=== PATIENT | female | born 1935 | race Caucasian/White ===

== ENCOUNTER → 2016-12-31 | Outpatient (CLI) | payer OTHER ==
--- NOTE | 2016-12-31 15:09 | MA ---
Screening Digital Mammogram With iCAD Analysis Clinical Indications: Routine screening. A sister was diagnosed with breast cancer in her 60s and her niece in her 40s. Technique: Standard cephalocaudal and mediolateral oblique projections were obtained. This examinatio n was processed by the iCAD computer aided detection system. Comparison: December 2015, October 2014, May 2013, March 2012, January 2011, January 2010, January 02. Breast density: Type B; Scattered fibroglandular densities. Findings: CAD was reviewed. No masses, suspicious calcifications or other signs of malignancy are id entified. There has been no significant change in the appearance of either breast. Impression: Negative mammogram. BI-RADS 1. Recommendation: Routine mammographic screening in one year. [facility] will send a result letter to the patient. Negative mammography should not preclude additional workup of a clinically suspicious finding. The patient's information is entered into a reminder system with a target due date for her next mammo gram.
== END ==
LOC: CIMAGING 13:35
DX: Z12.31 Encounter for screening mammogram for malignant neoplasm of breast (principal); Z80.3 Family history of malignant neoplasm of breast
CPT/HCPCS: G0202

== ENCOUNTER → 2017-04-16 | Outpatient (CLI) | payer OTHER | LOC: FIMAGING 13:42 | PROVIDERS: ATTEND Internal Medicine | DX: R05 Cough (principal); K44.9 Diaphragmatic hernia without obstruction or gangrene ==

== ENCOUNTER → 2017-06-17 | Outpatient (CLI) | payer OTHER | LOC: FIMAGING 07:06 | PROVIDERS: ATTEND Surgery | PROC: CW5B1ZZ Nonimaging Nuclear Medicine Probe of Head and Neck using Technetium 99m (Tc-99m) (ICD-10-PCS; principal; 2017-06-17) | DX: E21.3 Hyperparathyroidism, unspecified (principal) | CPT/HCPCS: 78808; A9500 ==

== ENCOUNTER → 2018-03-30 | Outpatient (CLI) | payer OTHER | LOC: CIMAGING 12:32 | PROVIDERS: ATTEND Internal Medicine | DX: Z12.31 Encounter for screening mammogram for malignant neoplasm of breast (principal) ==

== ENCOUNTER 2019-02-12 15:06 | Observation (INO) | payer OTHER ==
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
[2019-02-12 15:39] LABS: PLATELET COUNT 262 10^3/uL (150-400)
--- NOTE | 2019-02-12 15:44 | CPEKG ---
Test Reason : OPEN Blood Pressure : / mmHG Vent. Rate : 076 BPM Atrial Rate : 076 BPM P-R Int : 177 ms QRS Dur : 104 ms QT Int : 393 ms P-R-T Axes : 044 -39 017 degrees QTc Int : 442 ms Sinus rhythm Probable left atrial enlargement Left axis deviation Low voltage, precordial leads Confirmed by Leodan Hernandez ([id number]) on 02/12/2019 3:43:23 PM Referred By: LEODAN HERNANDEZ Confirmed By:Leodan Hernandez
[2019-02-12] MEDS ORDERED: IOPAMIDOL (ISOVUE-300) 100 ML BTL ONE (16:35)
[2019-02-12] MEDS ORDERED: HYDROmorphONE/DILAUDID 2 MG/ML INJ IVP ONE (17:35)
[2019-02-12] MEDS ORDERED: ACETAMINOPHEN 325 MG TAB PO PRN (17:59)
[2019-02-12] MEDS ORDERED: ONDANSETRON 4 MG/2 ML VIAL IVP PRN (17:59)
[2019-02-12] MEDS ORDERED: oxyCODONE IR 5 MG TAB PO PRN (17:59)
[2019-02-12] MEDS ORDERED: D5W 1/2 NS W/ 20 KCl/L 1,000 ML IV SCH (18:00)
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
[2019-02-12] MEDS ORDERED: hydrALAZINE 20 MG/ML VIAL IVP PRN (19:06)
[2019-02-12] MEDS ORDERED: D50W 25 GM/50 ML SYR IVP PRN (19:09)
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
[2019-02-12] MEDS: IBUPROFEN 600 MG TAB PO SCH (23:09)
[2019-02-12] MEDS: LOSARTAN POTASSIUM 50 MG TAB PO SCH (23:10)
[2019-02-12] MEDS: VANCOMYCIN 125 MG/2.5 ML UDL PO SCH (23:19)
[2019-02-13] MEDS: amLODIPine BESYLATE 5 MG TAB PO SCH ×2 (01:08→09:25)
[2019-02-13] MEDS: IBUPROFEN 600 MG TAB PO SCH ×2 (05:47→14:18)
[2019-02-13] MEDS: VANCOMYCIN 125 MG/2.5 ML UDL PO SCH ×3 (05:49→16:07)
[2019-02-13] MEDS ORDERED: THYROID 60 MG TAB PO SCH (06:00)
[2019-02-13] MEDS ORDERED: glipiZIDE 5 MG TAB PO SCH (07:30)
[2019-02-13] MEDS ORDERED: PIOGLITAZONE HCL 15 MG TAB PO SCH (09:00)
[2019-02-13] MEDS ORDERED: Herbals/Supplements -Info Only PO SCH (09:00)
[2019-02-13] MEDS ORDERED: HYDROCHLOROTHIAZIDE 12.5 MG CAP PO SCH (09:00)
[2019-02-13] MEDS: COLESEVELAM HCL 625 MG TAB PO SCH ×2 (09:26→12:22)
[2019-02-13] MEDS: LOSARTAN POTASSIUM 50 MG TAB PO SCH (09:27)
[2019-02-13] MEDS: INSULIN LISPRO 100 UNIT/ML SC SCH ×2 (09:33→12:19)
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
[2019-02-13] MEDS ORDERED: HYDROmorphONE/DILAUDID 2 MG TAB PO PRN (12:38)
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
--- NOTE | 2019-02-13 14:09 | ECHO ---
[email or web address] [address] [address] Main: [phone] Echocardiography Examination Transthoracic Name: SYLVESTER HUYNH MR#: [id number] Study Date: 02/13/2019 Study Time: 12:57 PM Date of : 1935 Age: 83 year(s) Height: 154.9 cm (61 in.) Weight: 87.09 kg (192 lb.) BSA: 1.86 m2 Gender: Female Examination: Echo Contrast: Image Quality: Good Rhythm: Normal sinus rhythm Heart Rate: 63 bpm BP: 137 mmHg/58 mmHg Indication: Cardiac: syncope Procedure Staff Referring Physician: [place] Machine Operator: Barrie Quintana RDCS Reading Physician: Reinaldo Mathews MD Requesting Provider: Indication: Cardiac: syncope Measurements Chambers AV/MV Label Value Normal Value Label Value Normal Value EF lower range (%) 75 % AV PGmax 18 mmHg EF upper range (%) 80 % AV PGmean 8 mmHg IVSd, 2D 0.9 cm (0.6cm - 1.1cm) AV Vmax 2.13 m/s LVDd, 2D 4.3 cm (3.9cm - 5.3cm) LATESHA (continuity eq. 1.3 cm2 LVDs, 2D 2.3 cm (2.1cm - 4cm) Vmax) LVEF, 2D 79 % (54% - 74%) LATEHSA D (continuity eq. 1.6 cm2 LVOT PGmax 4 mmHg VTI) LVOT PGmean 2 mmHg MV A Vmax 1.45 m/s LVOT Vmax 1.01 m/s (0.7m/s - 1.1m/s) MV E' lateral 0.06 m/s LVOT Vmean 0.7 m/s MV E' mean 0.05 m/s LVOTd 1.9 cm (1.8cm - 2cm) MV E' septal 0.04 m/s LVPWd, 2D 1.1 cm MV E Vmax 1.28 m/s RVDd, 2D 2.1 cm (1.9cm - 3.8cm) MV E/A 0.88 LA Area, A2C 17.5 cm2 (0cm2 - 20cm2) MV E/E' lateral 21.5 LA Volume, A2C 51 ml (22ml - 52ml) MV E/E' mean 25.6 LA Volume, A4C 75 ml (22ml - 52ml) MV E/E' septal 30.5 (0.45 - 1.25) LA Volume, BP 67 ml (22ml - 52ml) MV PGmax 9 mmHg LAD Index, 2D 1.94 cm/m2 MV PGmean 3 mmHg LADs, 2D 3.6 cm (2.7cm - 3.8cm) MV VTI 62.2 cm LAESV index, BP 36 ml/m2 MVA D (continuity eq.) 1.2 cm2 Patient: SYLVESTER HUYNH Study Date: 02/13/2019 Page 1 of 3 12:57 PM RA Area 13.9 cm2 TV/PV Additional Vessels Label Value Normal Value Label Value Normal Value RA Pressure 5 mmHg AoRoot, MM 2.6 cm (2.2cm - 3.7cm) RVSP 42 mmHg TR Pmax 37 mmHg TR Vmax 3.03 m/s PV PGmax 10 mmHg PV Vmax, Caliper 1.57 m/s (0.6m/s - 0.9m/s) Conclusions Left Ventricle: Global hypercontractility of the left ventricle. Grade II Diastolic Dysfunction. Mitral Valve: Trivial mitral regurgitation. There is mild mitral calcification. Aortic Valve: No significant aortic valve regurgitation. Aortic leaflets exhibit mild calcification. Tricuspid Valve: Mild tricuspid regurgitation. Right Ventricular systolic pressure is measured at 42 mmHg. Pericardium: No pericardial effusion. Findings Left Ventricle: Left ventricle is normal in size. Global hypercontractility of the left ventricle. The ejection fraction, measured by 2D, is 79 %. EF range is estimated at 75 % - 80 %. Left ventricle wall thickness is normal. There are no regional wall motion abnormalities. Grade II Diastolic Dysfunction. Right Ventricle: Normal size right ventricle. Right ventricular systolic function is normal. Left Atrium: The left atrium is mildly to moderately dilated. Left Atrium Measurements LA Volume, BP is 67 ml. LAESV index, BP is 36.0 ml/m2. Right Atrium: The right atrium is normal in size. Right Atrium Measurements RA Area is 13.9 cm2. Mitral Valve: Trivial mitral regurgitation. No mitral valve stenosis. There is mild mitral calcification. Aortic Valve: No significant aortic valve regurgitation. Aortic leaflets exhibit mild calcification. The aortic valve is trileaflet. Tricuspid Valve: Mild tricuspid regurgitation. Right Ventricular systolic pressure is measured at 42 mmHg. Pulmonary artery pressure is mildly increased. Patient: SYLVESTER HUYNH Study Date: 02/13/2019 Page 2 of 3 12:57 PM Pulmonic Valve: Pulmonic leaflets are structurally normal. No pulmonic valve regurgitation is evident. Aorta: The aorta is normal. The aortic root size in M-mode measures 2.6 cm. Aorta Measurements AoRoot, MM is 2.6 cm. Pericardium: No pericardial effusion. Exam Details Procedure Ordered: Echo Procedure Status: Routine study Image Quality: Good Facility Location: Cardiac Echo 1 (No Signature Object) Patient: SYLVESTER HUYNH Study Date: 02/13/2019 Page 3 of 3 12:57 PM [id number]
[2019-02-13 15:54] VITALS: BP 141/55
== END 2019-02-13 16:45 | disposition home or self-care (01) ==
LOC: EDUNIT# → F3N 20:01
PROVIDERS: ADMIT Surgery; ATTEND Surgery
DX: S22.43XA Multiple fractures of ribs, bilateral, initial encounter for closed fracture (principal); S22.21XA Fracture of manubrium, initial encounter for closed fracture; S06.0X9A Concussion with loss of consciousness of unspecified duration, initial encounter; V47.5XXA Car driver injured in collision with fixed or stationary object in traffic accident, initial encounter; Y92.414 Local residential or business street as the place of occurrence of the external cause; Y93.89 Activity, other specified; I10 Essential (primary) hypertension; M84.48XA Pathological fracture, other site, initial encounter for fracture; A04.71 Enterocolitis due to Clostridium difficile, recurrent; E11.9 Type 2 diabetes mellitus without complications; I25.10 Atherosclerotic heart disease of native coronary artery without angina pectoris; R91.1 Solitary pulmonary nodule; E04.1 Nontoxic single thyroid nodule; G47.33 Obstructive sleep apnea (adult) (pediatric); J44.9 Chronic obstructive pulmonary disease, unspecified
CPT/HCPCS: 70450; 71045; 71260; 92523; 93005; 93306; 93880; 97161; 97165; 97530; 97535; G0378; J1170; J1815; Q9967; 96374